=== PATIENT | female | born 1960 | race Caucasian/White ===

== ENCOUNTER 2016-11-17 18:07 | Emergency (ER) | payer BC ==
--- NOTE | 2016-11-17 18:19 | CPEKG ---
Heart Rate: 84 RR Interval: 714 P-R Interval: 144 QRSD Interval: 80 QT Interval: 388 QTC Interval: 459 P [place]: 72 QRS [place]: 76 T Wave [place]: -28 EKG Severity - ABNORMAL ECG - EKG Impression: SINUS RHYTHM EKG Impression: NONSPECIFIC T ABNORMALITIES, INFERIOR LEADS EKG Impression: Possible left atrial abnormality EKG Impression: No significant change from August 05, 2015 Electronically Signed By: Boogie Edge 19-Nov-2016 09:58:40
[2016-11-17] MEDS ORDERED: HYDROmorphONE/DILAUDID 1 MG/ML SYR IVP ONE (18:31)
[2016-11-17] MEDS ORDERED: NS 1,000 ML IV ONE (18:32)
[2016-11-17 18:33] LABS: % IMMATURE GRANULYOCYTES 0.2 % (0.0-1.1); ABSOLUTE IMMATURE GRANULOCYTES 0.01 10^3/uL (0.00-0.10); ADD DIFF? NO; ADD MORPH? NO; ADD SCAN? NO; ATYPICAL LYMPHOCYTE FLAG 20 (0-99); FRAGMENT RBC FLAG 0 (0-99); HEMATOCRIT 44.6 % (38.0-47.0); HEMOGLOBIN 15.2 g/dL (12.6-16.3); LEFT SHIFT FLG 10 (0-99); LIPEMIA HEMOLYSIS FLAG 90 (0-99); MEAN CELL HEMOGLOBIN 31.1 pg (27.9-34.1); MEAN CELL HEMOGLOBIN CONCENTR. 34.1 g/dL (32.4-36.7); MEAN CELL VOLUME 91.2 fL (81.5-99.8); MEAN PLATELET VOLUME 10.5 fL (8.7-11.7); PLATELET CLUMPS FLAG 10 (0-99); PLATELET COUNT 212 10^3/uL (150-400); RED BLOOD CELL COUNT 4.89 10^6/uL (4.18-5.33); RED CELL DISTRIBUTION WIDTH 12.8 % (11.5-15.2)
--- NOTE | 2016-11-17 18:35 | EDPHY ---
HPI/HX/ROS/PE/MDM Narrative: CHIEF COMPLAINT: Rib pain HPI: The patient is a 56 y/o female with a history of provoked PE, arriving with her complaining of left-sided rib pain below her breast onset acutely at 16:00, about 2.5 hours ago. The pain was initially [id number] in severity, but worsened significantly at 18:00 and now feels like "every time I try to take a breath it's like a knife" along her left lower anterior ribs. This pain feels similar to her prior PE one year ago. She is not currently on anticoagulants. She denies cough, fever, recent surgery, recent trauma, or recent travel. She does note intermittent pain along the back of her right thigh for the last week. She felt normal this morning and went hiking without dyspnea or chest pain. REVIEW OF SYSTEMS: Aside from elements discussed in the HPI, a comprehensive 10-point review of systems was reviewed and is negative. PMH: right-sided PE last year after knee surgery, was on Eliquis for 3 months; fall 8 years ago with multiple rib fractures, pneumothorax, and clavicle fracture SOCIAL HISTORY: at bedside PHYSICAL EXAM: General:Patient is alert, appears uncomfortable. ENT:Eyes are normal to inspection. ENT inspection normal. Neck: Normal inspection. Full range of motion. Respiratory:No respiratory distress. Breath sounds normal bilaterally. Cardiovascular: Regular rate and rhythm. Strong peripheral pulses. Normal cap refill. Abdomen:The abdomen is nontender to palpation. There are no peritoneal signs. Back: Normal to inspection. No tenderness to palpation. Skin: Normal color. No rash. Warm and dry. Extremities: Normal appearance. Full range of motion. Neuro: Oriented x3. Normal motor function. Normal sensory function. ED Course: IV established. Labs drawn. 1L IV NS and 0.5mg IV Dilaudid administered for pain. Chest CTA ordered. The 12 lead EKG was interpreted by myself. Sinus mechanism. See hard copy and/ or "tracemaster" electronic copy for interpretation. CTA negative. Labs unremarkable. Reassessed patient and discussed findings. Second EKG ordered. MDM: This patient presents with sudden onset of left-sided pleuritic chest pain. Given her history of PE, her presentation is obviously suspicious for this disease, but thankfully her CTA was normal. This also reveals no evidence of PNA , PTx, TAD. There are no signs of ACS, with negative troponin and ECG. On re- evaluation, patient is now essentially asymptomatic. She is not interested in admission to the hospital. She is comfortable going home with close outpatient follow-up. - Data Points Imaging Results: Imaging Impressions Chest X-Ray 11/17/16 18:30 Impression: Chest negative for acute cardiopulmonary radiographic abnormality. Chest/Thorax CTA 11/17/16 18:30 Impression: 1. No evidence of pulmonary embolic disease. 2. See above report for additional findings. Results called and discussed with Michele Augustine M.D., on November 17, 2016 at 1949. Imaging: Discussed imaging studies w/ loft worker apprentice Radiologist, I viewed and interpreted images myself Laboratory Results: Laboratory Results 11/17/16 18:19 11/17/16 18:19 11/17/16 11/17/16 18:19 18:19 WBC 5.97 10^3/uL 10^3/uL (3.80-9.50) RBC 4.89 10^6/uL 10^6/uL (4.18-5.33) Hgb 15.2 g/dL g/dL (12.6-16.3) Hct 44.6 % % (38.0-47.0) MCV 91.2 fL fL (81.5-99.8) MCH 31.1 pg pg (27.9-34.1) MCHC 34.1 g/dL g/dL (32.4-36.7) RDW 12.8 % % (11.5-15.2) Plt Count 212 10^3/uL 10^3/uL (150-400) MPV 10.5 fL fL (8.7-11.7) Neut % (Auto) 56.7 % % (39.3-74.2) Lymph % (Auto) 28.5 % % (15.0-45.0) [place] % (Auto) 10.6 % % (4.5-13.0) Eos % (Auto) 3.7 % % (0.6-7.6) Baso % (Auto) 0.3 % % (0.3-1.7) Nucleat RBC Rel Count 0.0 % % (0.0-0.2) Absolute Neuts (auto) 3.39 10^3/uL 10^3/uL (1.70-6.50) Absolute Lymphs (auto) 1.70 10^3/uL 10^3/uL (1.00-3.00) Absolute Monos (auto) 0.63 10^3/uL 10^3/uL (0.30-0.80) Absolute Eos (auto) 0.22 10^3/uL 10^3/uL (0.03-0.40) Absolute Basos (auto) 0.02 10^3/uL 10^3/uL (0.02-0.10) Absolute Nucleated RBC 0.00 10^3/uL 10^3/uL (0-0.01) Immature Gran % 0.2 % % (0.0-1.1) Immature Gran # 0.01 10^3/uL 10^3/uL (0.00-0.10) Sodium 142 mEq/L mEq/L (134-144) Potassium 3.9 mEq/L mEq/L (3.5-5.2) Chloride 105 mEq/L mEq/L (97-110) Carbon Dioxide 21 mEq/l L mEq/l (22-31) Anion Gap 16 mEq/L mEq/L (8-16) BUN 30 mg/dL H mg/dL (7-23) Creatinine 1.0 mg/dL mg/dL (0.6-1.0) Estimated GFR 57 Glucose 86 mg/dL mg/dL (70-100) Calcium 10.2 mg/dL mg/dL (8.5-10.4) Troponin I < 0.012 ng/mL ng/mL (0-0.034) Medications Given: Discontinued Medications Hydromorphone HCl (Dilaudid) 0.5 mg IVP EDNOW ONE Stop: 11/17/16 18:32 Last Admin: 11/17/16 18:36 Dose: 0.5 mg Sodium Chloride (Ns) 1,000 mls @ 0 mls/hr IV ONCE ONE PRN Reason: Wide Open Stop: 11/17/16 18:33 Last Admin: 11/17/16 18:36 Dose: 1,000 mls General Time Seen by Provider: 11/17/16 18:22 Initial Vital Signs: Initial Vital Signs Temperature (C) 36.5 C 11/17/16 18:15 Heart Rate 83 11/17/16 18:15 Respiratory Rate 20 11/17/16 18:15 Blood Pressure 147/101 H 11/17/16 18:15 O2 Sat (%) 95 11/17/16 18:15 O2 Delivery Mode Room Air Allergies/Adverse Reactions: morphine Allergy (Intermediate, Verified 08/04/15 09:17) "intermal itching" Penicillins Allergy (Mild, Verified 08/04/15 09:17) Rash Home Medications: Medication Instructions Recorded Triamterene/Hydrochlorothiazid 0.5 tab PO DAILY 08/04/15 [Triamterene-Hctz 37.5-25 mg Tb] Departure - Departure Disposition: Home, Routine, Self-Care Clinical Impression: Chest pain, Pleurisy Condition: Good Instructions: Pleurisy (ED) Additional Instructions: Follow-up with your primary doctor within 72 hours. Return to the Emergency Department for fever, chest pain, shortness of breath, increasing pain or other worsening of condition. Referrals: Poonam Blevins MD [Primary Care Provider] - As per Instructions Darnell Meek MD [Medical Doctor] - As per Instructions Report Scribed for: Michele Augustine Report Scribed by: Jolly Boyd Date of Report: 11/17/16 Time of Report: 18:35 Physician Review and Approval Statement: Portions of this note were transcribed by an ED scribe. I personally performed the history, physical exam, and medical decision making; and confirm the accuracy of the information in the transcribed note.
[2016-11-17] MEDS ORDERED: IOPAMIDOL (ISOVUE 370) 100 ML BTL IV ONE (18:46)
[2016-11-17 18:48] LABS: ANION GAP 16 mEq/L (8-16); CALCIUM 10.2 mg/dL (8.5-10.4); CARBON DIOXIDE 21 mEq/l (22-31); CHLORIDE 105 mEq/L (97-110); GLOMERULAR FILTRATION RATE 57; GLUCOSE 86 mg/dL (70-100); POTASSIUM 3.9 mEq/L (3.5-5.2); SODIUM 142 mEq/L (134-144)
[2016-11-17 18:59] LABS: TROPONIN I < 0.012 ng/mL (0-0.034)
--- NOTE | 2016-11-17 20:15 | CPEKG ---
Heart Rate: 82 RR Interval: 732 P-R Interval: 152 QRSD Interval: 88 QT Interval: 424 QTC Interval: 496 P [place] [employer]: -1 QRS [place] [employer]: 78 T Wave [place] [employer]: -2 EKG Severity - BORDERLINE ECG - EKG Impression: BORDERLINE PROLONGED QT INTERVAL EKG Impression: Wandering atrial pacemaker-- New since November 17, 2016, 18:[address]: Mild ST-T wave abnormalities Electronically Signed By: Boogie Edge 19-Nov-2016 09:57:49
[2016-11-17 20:38] VITALS: BP 132/89; PULSE 79; RESP 18; TEMP 98.1; O2SAT 94
== END 2016-11-17 20:36 | disposition home or self-care (01) ==
DX: R09.1 Pleurisy (principal)
CPT/HCPCS: 96374; J1170; Q9967

== ENCOUNTER → 2017-03-01 | Outpatient (CLI) | payer BC | LOC: FIMAGING 15:36 | PROVIDERS: ATTEND Family Medicine | DX: Z12.31 Encounter for screening mammogram for malignant neoplasm of breast (principal) | CPT/HCPCS: G0202 ==